=== PATIENT | male | born 1990 | race African-American/Black ===

== ENCOUNTER 2016-09-01 04:21 | Emergency (ER) | payer MEDICAID ==
[~2016-09-01] VITALS: Ht 182.9 cm; Wt 65.0 kg
[2016-09-01 07:39] VITALS: BP 124/82
[2016-09-01] MEDS: IBUPROFEN 600MG TABLET PO ONE (07:39)
== END 2016-09-01 08:38 | disposition home or self-care (01) ==
LOC: ER 04:25
DX: S01.511A Laceration without foreign body of lip, initial encounter (principal); Y09 Assault by unspecified means; Y99.9 Unspecified external cause status; Y92.89 Other specified places as the place of occurrence of the external cause
CPT/HCPCS: 99283